=== PATIENT | female | born 1995 | race African-American/Black ===

== ENCOUNTER 2019-07-23 14:20 | Inpatient (IN) | payer OTHER ==
[~2019-07-23] VITALS: Ht 167.6 cm; Wt 64.0 kg
[2019-07-23] MEDS ORDERED: VITAMIN D PO (14:51)
[2019-07-23] MEDS ORDERED: PROP60TA14 PO (14:51)
[2019-07-23] MEDS ORDERED: CYMB60CA3 PO (14:51)
[2019-07-23 15:27] LABS: HEMATOCRIT 41.3 % (36.0-47.0); HEMOGLOBIN 13.1 g/dl (12.0-15.5); MEAN CORPUSCULAR HEMOGLOBIN 29.8 pg (27.0-33.0); MEAN CORPUSCULAR HGB CONC 31.7 g/dl (32.0-36.5); MEAN CORPUSCULAR VOLUME 93.9 fl (80.0-96.0); PLATELET COUNT, AUTOMATED 219 10^3/uL (150-450); WHITE BLOOD COUNT 4.7 10^3/uL (4.0-10.0)
[2019-07-23 15:49] LABS: AMPHETAMINES LEVEL URINE NEGATIVE (NEGATIVE); BARBITURATES URINE NEGATIVE (NEGATIVE); BENZODIAZEPINES URINE NEGATIVE (NEGATIVE); CANNABINOIDS URINE NEGATIVE (NEGATIVE); COCAINE METABOLITE URINE NEGATIVE (NEGATIVE); METHADONE URINE NEGATIVE (NEGATIVE); OPIATES URINE NEGATIVE (NEGATIVE); PHENCYCLIDINE URINE NEGATIVE (NEGATIVE)
[2019-07-23 15:50] LABS: HCG, SERUM QUALITATIVE NEGATIVE (NEGATIVE)
[2019-07-23 16:21] LABS: ACETAMINOPHEN LEVEL < 2.0 UG/ML (10.0-30.0); ALBUMIN 4.2 GM/DL (3.2-5.2); ALT/SGPT 20 U/L (12-78); BILIRUBIN,DIRECT 0.2 MG/DL (0.0-0.2); BLOOD UREA NITROGEN 10 MG/DL (7-18); CALCIUM LEVEL 8.8 MG/DL (8.5-10.1); CARBON DIOXIDE LEVEL 26 MEQ/L (21-32); CHLORIDE LEVEL 106 MEQ/L (98-107); CREATININE FOR GFR 0.86 MG/DL (0.55-1.30); ETHYL ALCOHOL (ETHANOL) < 0.003 % (0.000-0.010); GLOMERULAR FILTRATION RATE > 60.0 (>60); GLUCOSE, FASTING 88 MG/DL (70-100); POTASSIUM SERUM 3.9 MEQ/L (3.5-5.1); SALICYLATE LEVEL < 1.7 MG/DL (5.0-30.0); SODIUM LEVEL 139 MEQ/L (136-145); THYROID STIMULATING HORMONE 0.687 uIU/ML (0.358-3.740); TOTAL PROTEIN 7.9 GM/DL (6.4-8.2)
[2019-07-23] MEDS ORDERED: IBUPROFEN 400 MG TAB PO PRN (17:45)
[2019-07-23] MEDS ORDERED: traZODone 50 MG TAB PO PRN (17:45)
[2019-07-23] MEDS ORDERED: MAALOX 30 ML SUSP *UDC PO PRN (17:45)
[2019-07-23] MEDS ORDERED: MOM 30ML SUSPENSION UDC PO PRN (17:45)
[2019-07-23] MEDS ORDERED: OLANZapine 5 MG TAB PO PRN (17:45)
[2019-07-23] MEDS ORDERED: VITA50005 PO (18:28)
[2019-07-23 21:35] VITALS: BP 116/70
[2019-07-24 07:19] VITALS: BP 104/67
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
[2019-07-24 12:00] VITALS: BP 118/74
[2019-07-24] MEDS ORDERED: buPROPion **XL** TABLET 150MG (WELLBUTRIN XL) PO ONE (12:30)
[2019-07-24 16:27] VITALS: BP 124/71
[2019-07-24 23:11] VITALS: BP 132/72
[2019-07-25 06:15] VITALS: BP 126/70
[2019-07-25] MEDS: buPROPion **XL** TABLET 150MG (WELLBUTRIN XL) PO SCH (10:36)
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
[2019-07-25] MEDS ORDERED: MIRALAX *UNIT DOSE* 17GM PACKET PO PRN (17:30)
--- NOTE | 2019-07-25 17:41 | CR.PDOC ---
General Date of Consultation: Jul 25, 2019 Consultation REASON FOR CONSULTATION/CHIEF COMPLAINT: Physical examination HISTORY OF PRESENT ILLNESS: Patient is 23 years old with past medical history of anxiety, migraine, depression, chronic constipation, who was admitted in the hospital with suicidal ideation. Patient complains of constipation for 5-6 days. Also patient complains of frequent episodes of migraine, presented almost daily. She denied any cardiovascular problem, breathing problem, GI problem or dysuria. She denies fever, chills, nausea, vomiting, shortness of breath, palpitations, diarrhea or dysuria ALLERGIES: Please see below HOME MEDICATIONS: Please see below. PAST MEDICAL HISTORY: anxiety, migraine depression, chronic constipation Vitamin D deficiency PAST SURGICAL HISTORY: None FAMILY HISTORY: Father: Hypertension, migraine Mother: Healthy SOCIAL HISTORY: Marital status and/or living arrangements: Single Tobacco use: Denied ETOH: Denied Illicit drug use: Denied IV drug use: Denied PHYSICAL EXAMINATION: VITAL SIGNS: Please see below. GENERAL APPEARANCE: NAD HEENT: PERRLA, EOMI RESPIRATORY: CTA CARDIOVASCULAR: S1-S2 ABDOMEN: Nontender nondistended EXTREMITIES: No swelling NEUROLOGICAL: Cranial nerves from 2-12 intact LABORATORY DATA: Please see below. ASSESSMENT/PLAN: Constipation MiraLAX when necessary Vitamin D Continue ergocalciferol Migraine Continue with Propranolol Tylenol when necessary Vital Signs/I&O Vital Signs Date Time Temp Pulse Resp B/P (MAP) Pulse Ox O2 Delivery O2 Flow Rate FiO2 07/25/19 06:15 98.6 126 12 126/70 (88) 07/24/19 07:19 Room Air 07/23/19 21:35 100 Allergies Coded Allergies: No Known Allergies (Unverified , 07/23/19) Home Medications Scheduled Duloxetine Hcl (Cymbalta) 60 Mg Capsule.dr, 60 MG PO DAILY, (Reported) Ergocalciferol (Vitamin D2) (Vitamin D2) 50,000 Units Cap, 50,000 UNIT PO 1XWK, (Reported) SUNDAYS Propranolol Hcl (Propranolol HCl) 60 Mg Tablet, 60 MG PO BID, (Reported) QUINN ALLISON DO Jul 25, 2019 17:40
[2019-07-25] MEDS ORDERED: ACETAMINOPHEN TAB 650MG DOSE (2X325MG) PO PRN (17:45)
[2019-07-25 18:33] VITALS: BP 128/65
[2019-07-25] MEDS: PROPRANOLOL 20 MG TAB PO SCH (21:00)
[2019-07-26 06:01] VITALS: BP 132/80
[2019-07-26 08:37] VITALS: BP 122/85
[2019-07-26] MEDS: PROPRANOLOL 20 MG TAB PO SCH (08:37)
[2019-07-26] MEDS: buPROPion **XL** TABLET 150MG (WELLBUTRIN XL) PO SCH (08:37)
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
[2019-07-26 12:27] VITALS: BP 122/85
[2019-07-26 16:24] VITALS: BP 110/60
[2019-07-26] MEDS ORDERED: SENOKOT S TAB PO PRN (18:30)
[2019-07-26] MEDS: RAMELTEON 8 MG TAB (ROZEREM) PO SCH (21:55)
[2019-07-27] MEDS: buPROPion **XL** TABLET 150MG (WELLBUTRIN XL) PO SCH (09:00)
[2019-07-27] MEDS: DULoxetine 30 MG CAP (CYMBALTA) PO SCH (10:32)
[2019-07-27 16:14] VITALS: BP 130/85
[2019-07-27] MEDS: RAMELTEON 8 MG TAB (ROZEREM) PO SCH (20:16)
[2019-07-28 06:20] VITALS: BP 138/67
[2019-07-28] MEDS: buPROPion **XL** TABLET 150MG (WELLBUTRIN XL) PO SCH (08:31)
[2019-07-28] MEDS: DULoxetine 30 MG CAP (CYMBALTA) PO SCH (08:31)
[2019-07-28] MEDS ORDERED: VITAMIN D 50,000 UNITS CAPSULE (ERGOCALCIFEROL 1.25MG) PO SCH (09:00)
[2019-07-28 16:03] VITALS: BP 128/74
[2019-07-28] MEDS: RAMELTEON 8 MG TAB (ROZEREM) PO SCH (20:14)
[2019-07-29 06:43] VITALS: BP 117/64
[2019-07-29] MEDS: buPROPion **XL** TABLET 150MG (WELLBUTRIN XL) PO SCH (09:00)
[2019-07-29] MEDS: DULoxetine 30 MG CAP (CYMBALTA) PO SCH (09:12)
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
[2019-07-29 16:16] VITALS: BP 142/60
[2019-07-29] MEDS: RAMELTEON 8 MG TAB (ROZEREM) PO SCH (21:00)
[2019-07-30 06:20] VITALS: BP 121/60
[2019-07-30] MEDS ORDERED: DULoxetine 20 MG CAP (CYMBALTA) PO SCH (09:00)
[2019-07-30] MEDS ORDERED: CYMB1CAP4 PO (10:35)
--- NOTE | 2019-07-30 10:36 | MHDSPDOC ---
[facility] Discharge Summary Discharge Summary DATE OF ADMISSION: Jul 23, 2019 at 17:37 DATE OF DISCHARGE: DISCHARGE DIAGNOSES: 1. . 2. . REASON FOR ADMISSION: CONSULTANTS INVOLVED: TREATMENT AND PROGRESS ON THE UNIT : . HOSPITAL COURSE: DISCHARGE ASSESSMENT: MENTAL STATUS EXAMINATION ON DISCHARGE: Patient is a -year old female, who is . Speech is . Language skills are . Thought processes including: . Thought content: . Abstract reasoning, and computation: . Description of associations: . Description of abnormal or psychotic thoughts: . Judgment: . Insight: . Orientation to . Recent and remote memory: . Attention span and concentration: . Language: . Fund of knowledge: . Mood: . Affect: . MEDICATIONS ON DISCHARGE: - for . - for . - for . PLAN/FOLLOWUP ARRANGEMENTS: . The amount of time spent in the coordination of care for this patient was approximately minutes. Vital Signs/I&Os Vital Signs Date Time Temp Pulse Resp B/P (MAP) Pulse Ox O2 Delivery O2 Flow Rate FiO2 07/30/19 06:20 98.5 84 14 121/60 (80) 07/29/19 16:16 Room Air 07/26/19 12:27 100 Medications Scheduled Duloxetine HCl (Cymbalta) 20 Mg Capsule.dr, 80 MG PO DAILY for mood for 7 Days, #28 Ergocalciferol (Vitamin D2) (Vitamin D2) 50,000 Units Cap, 50,000 UNIT PO 1XWK, (Reported) SUNDAYS Propranolol Hcl (Propranolol HCl) 60 Mg Tablet, 60 MG PO BID, (Reported) Allergies Coded Allergies: No Known Allergies (Unverified , 07/23/19) BULMARO ISAACS DO Jul 30, 2019 10:35
== END 2019-07-30 12:02 | disposition home or self-care (01) | DRG 882 ==
LOC: M ED 14:20 → M ED INP 17:37 → M PSY 19:48
PROVIDERS: ADMIT Psychiatry & Neurology Psychiatry; ATTEND Psychiatry & Neurology Addiction Medicine
DX: F43.12 Post-traumatic stress disorder, chronic (principal); F32.2 Major depressive disorder, single episode, severe without psychotic features; E55.9 Vitamin D deficiency, unspecified; Z79.899 Other long term (current) drug therapy

== ENCOUNTER 2020-06-26 08:40 | Day surgery (SDC) | payer OTHER ==
[~2020-06-26] VITALS: Ht 167.6 cm; Wt 63.4 kg
[~2020-06-26 08:40] MED LIST: CYMB1CAP4 PO; CYMB60CA3 PO; LIDOCAINE 2% 100MG/5ML SDV (FOR ANES.) As Ordered ONE; NS 1,000 ML IV ONE; PROP60TA14 PO; VITA50005 PO; VITAMIN D PO; propofoL 200 MG/20 ML VIAL As Ordered ONE
[2020-06-26] MEDS ORDERED: propofoL 200 MG/20 ML VIAL As Ordered ONE (10:28)
--- NOTE | 2020-06-26 10:30 | ROOR ---
Patient Name: Angelina Parikh Procedure Date: 06/26/2020 10:04 AM Date of : 1995 Age: 24 Room: [facility] Gender: Female Note Status: Finalized Procedure: Total Colonoscopy to Cecum Indications: Rectal bleeding, Change in bowel habits, Chronic idiopathic constipation Providers: Salvador Burks MD Referring MD: HUMA DELGADO MD Requesting Provider: Medicines: Monitored Anesthesia Care Complications: No immediate complications. Procedure: Pre-Anesthesia Assessment: - The heart rate, respiratory rate, oxygen saturations, blood pressure, adequacy of pulmonary ventilation, and response to care were monitored throughout the procedure. The Colonoscope was introduced through the anus and advanced to the cecum, identified by appendiceal orifice and ileocecal valve. The colonoscopy was performed without difficulty. The patient tolerated the procedure well. The quality of the bowel preparation was excellent. Findings: The perianal and digital rectal examinations were normal. No other significant abnormalities were identified in a careful examination of the remainder of the colon. The exam was otherwise without abnormality on direct and retroflexion views. Impression: - The examination was otherwise normal on direct and retroflexion views. - No specimens collected. - The exam was otherwise normal to the cecum. Recommendation: - Patient has a contact number available for emergencies. The signs and symptoms of potential delayed complications were discussed with the patient. Return to normal activities tomorrow. Written discharge instructions were provided to the patient. - High fiber diet. - Discharge patient to home. - Continue present medications. - Repeat colonoscopy at age 48 for screening purposes. - Return to referring physician. - The findings and recommendations were discussed with the patient. Procedure Code(s): --- Professional --- 54607, Colonoscopy, flexible; diagnostic, including collection of specimen(s) by brushing or washing, when performed (separate procedure) Diagnosis Code(s): --- Professional --- K62.5, Hemorrhage of anus and rectum R19.4, Change in bowel habit K59.04, Chronic idiopathic constipation CPT copyright 2019 [employer]. All rights reserved. The codes documented in this report are preliminary and upon hand packer review may be revised to meet current compliance requirements. Salvador Burks MD Salvador Burks MD 06/26/2020 10:30:28 AM Electronically signed by Salvador Burks MD Number of Addenda: 0 Note Initiated On: 06/26/2020 10:04 AM Estimated Blood Loss: Estimated blood loss: none.
[2020-06-26 10:50] VITALS: BP 101/66
== END 2020-06-26 10:58 | disposition home or self-care (01) ==
LOC: M OPP 08:40
PROVIDERS: ATTEND Internal Medicine Gastroenterology
DX: K62.5 Hemorrhage of anus and rectum (principal); R19.4 Change in bowel habit; F41.9 Anxiety disorder, unspecified; F32.9 Major depressive disorder, single episode, unspecified; G43.909 Migraine, unspecified, not intractable, without status migrainosus

== ENCOUNTER → 2021-04-13 | Outpatient (CLI) | payer OTHER ==
[~2021-04-13] MED LIST changes: -CYMB60CA3 PO; +CYMB60CA4 PO; +ERGO500029 PO; -LIDOCAINE 2% 100MG/5ML SDV (FOR ANES.) As Ordered ONE; -NS 1,000 ML IV ONE; -VITA50005 PO; -propofoL 200 MG/20 ML VIAL As Ordered ONE
--- NOTE | 2021-04-13 13:17 | REP ---
INDICATION: CHEST PAIN, UNSPECIFIED. COMPARISON: None. TECHNIQUE: Upright PA and lateral chest images were obtained. FINDINGS: The lungs are clear. The heart borders mediastinum and pulmonary vascular pattern normal. The upper abdominal bowel gas pattern is normal. There is mild dextroscoliosis of the thoracic spine. IMPRESSION: No evidence of acute cardiopulmonary pathology. <Electronically signed by Yung Ferro > 04/13/21 0669
[2021-04-13 16:16] LABS: BASO % 0.3 % (0.0-1.0); HEMATOCRIT 34.9 % (36.0-47.0); HEMOGLOBIN 11.4 g/dl (12.0-15.5); LYMPH % 53.5 % (24.0-44.0); MEAN CORPUSCULAR HEMOGLOBIN 31.4 pg (27.0-33.0); MEAN CORPUSCULAR HGB CONC 32.7 g/dl (32.0-36.5); MEAN CORPUSCULAR VOLUME 96.1 fl (80.0-96.0); MONO # 0.4 10^3/uL (0.0-0.8); MONO % 9.7 % (2.0-8.0); NEUTROPHILS # 1.4 10^3/uL (1.5-8.5); NEUTROPHILS % 36.5 % (36.0-66.0); PLATELET COUNT, AUTOMATED 273 10^3/uL (150-450); RED BLOOD COUNT 3.63 10^6/uL (4.00-5.40); WHITE BLOOD COUNT 3.7 10^3/uL (4.0-10.0)
[2021-04-13 17:06] LABS: ALT/SGPT 21 U/L (12-78); BLOOD UREA NITROGEN 9 MG/DL (7-18); CALCIUM LEVEL 9.4 MG/DL (8.5-10.1); CARBON DIOXIDE LEVEL 30 MEQ/L (21-32); CHLORIDE LEVEL 110 MEQ/L (98-107); CK-MB VALUE MASS 1.3 NG/ML (<3.6); CPK CREATINE PHOSPHOKINASE 169 U/L (26-192); CREATININE FOR GFR 1.04 MG/DL (0.55-1.30); FREE T4 0.91 NG/DL (0.76-1.46); GLOMERULAR FILTRATION RATE > 60.0 (>60); GLUCOSE, FASTING 88 MG/DL (70-100); MB/CK RELATIVE INDEX 0.77 (< OR =4); SODIUM LEVEL 141 MEQ/L (136-145); THYROID STIMULATING HORMONE 0.776 uIU/ML (0.358-3.740); TOTAL PROTEIN 7.4 GM/DL (6.4-8.2); TROPONIN I < 0.02 NG/ML (< 0.10)
== END ==
LOC: M WUC 10:46
PROVIDERS: ATTEND Physician Assistant
DX: R07.9 Chest pain, unspecified (principal)

== ENCOUNTER → 2021-06-18 | Outpatient (CLI) | payer OTHER ==
[2021-06-18 10:02] LABS: ESTRADIOL 351.2 PG/ML; PROGESTERONE 27.47 NG/ML
== END ==
LOC: M LAB 08:52
PROVIDERS: ATTEND Obstetrics & Gynecology Reproductive Endocrinology
DX: Z31.49 Encounter for other procreative investigation and testing (principal)

== ENCOUNTER → 2021-06-25 | Outpatient (CLI) | payer OTHER ==
[2021-06-25 08:25] LABS: THYROID STIMULATING HORMONE 1.06 uIU/ML (0.358-3.740)
[2021-06-25 09:24] LABS: ESTRADIOL 357.5 PG/ML; PROGESTERONE 20.58 NG/ML
== END ==
LOC: M LAB 07:31
PROVIDERS: ATTEND Obstetrics & Gynecology Reproductive Endocrinology
DX: Z32.01 Encounter for pregnancy test, result positive (principal)

== ENCOUNTER → 2021-07-12 | Outpatient (CLI) | payer OTHER ==
[2021-07-12 10:46] LABS: ESTRADIOL 449.4 PG/ML; PROGESTERONE 3.2 NG/ML
== END ==
LOC: M LAB 07:31
PROVIDERS: ATTEND Obstetrics & Gynecology Reproductive Endocrinology
DX: O09.00 Supervision of pregnancy with history of infertility, unspecified trimester (principal); Z3A.00 Weeks of gestation of pregnancy not specified

== ENCOUNTER → 2021-07-19 | Outpatient (CLI) | payer OTHER ==
[2021-07-19 12:35] LABS: ESTRADIOL 609.1 PG/ML; PROGESTERONE 43.03 NG/ML
== END ==
LOC: M RAD 07:05
PROVIDERS: ATTEND Obstetrics & Gynecology Reproductive Endocrinology
DX: Z36.89 Encounter for other specified antenatal screening (principal); O09.00 Supervision of pregnancy with history of infertility, unspecified trimester; Z3A.01 Less than 8 weeks gestation of pregnancy